=== PATIENT | female | born 1935 | race Caucasian/White ===

== ENCOUNTER → 2017-12-17 09:02 | Outpatient (CLI) | payer MEDICARE, OTHER, SELFPAY ==
--- NOTE | 2017-12-17 | DI.MRI.S_ITS ---
PROCEDURE: MR LUMBAR SPINE WO CON INDICATIONS: BILATERAL LUMBAR RADICULOPATHY TECHNIQUE: Noncontrast sagittal T1 spin echo and T2 fast echo, sagittal STIR, axial T1 and T2 fast spin echo through the lumbar spine. In cases with scoliosis, additional coronal T2 fast spin echo may be performed. COMPARISON: None. FINDINGS: Image quality: Excellent. Alignment and Curvature: Mild retrolisthesis is seen at the L1-L2 and L2-L3 levels. S-shaped scoliotic curvature is seen. Bone Marrow: Marrow is of normal overall signal. No acute vertebral body compression fractures. Scattered foci are seen, which are hyperintense on T1-weighted and T2-weighted imaging, which are most consistent with benign vertebral body hemangiomas. Spinal Cord: Conus medullaris terminates at the L1 level. Visualized cord demonstrates normal signal and size. Paraspinous Soft Tissues: No paravertebral masses. Postoperative changes are seen, with bilateral pedicle screws at the L3, L4, and L5 levels. Vertical fixation rods are seen. There is associated susceptibility artifact. There has been removal of portions of the posterior elements. T12-L1: Normal appearance. L1-L2: At least moderate loss of disc height is seen. Moderate generalized disc bulge is seen. Bridging endplate osteophytes are seen anteriorly. Mild bilateral neural foraminal narrowing is seen. Moderate central canal narrowing is seen. L2-L3: Moderate to severe loss of disc height and disc signal are seen. Mitral and disc bulge is seen, which is eccentric to the left. There is moderate to severe left-sided neural foraminal narrowing seen, with a degree of impingement upon the exiting left L2 nerve root. Moderate right-sided neural foraminal narrowing is seen. Moderate central canal narrowing is seen. L3-L4: Mild to moderate loss of disc height and disc signal are seen. Mild to moderate disc bulge is seen. Moderate bilateral neural foraminal narrowing is seen at this level. The central canal is widely patent. L4-L5: The disc height is well-preserved. Loss of disc signal is seen at this level. Mild generalized disc bulge is seen. Mild bilateral neural foraminal narrowing is seen. The central canal is widely patent. L5-S1: The disc height is well-preserved. Loss of disc signal is seen at this level. Mild disc bulge is seen, with a central disc extrusion, with superior migration of disc material, as on series 4 image 10. Moderate to severe bilateral neural foraminal narrowing is seen. There is a degree of impingement seen upon the exiting nerve roots. The central canal is widely patent. IMPRESSION: Moderate to severe bilateral neural foraminal narrowing is seen at L5-S1. L3-L5 hardware and removal of portions of the posterior elements. Grade 1 retrolisthesis at L1-L2 and L2-L3. Dictated by: Davey Mosquera M.D. on 12/17/2017 at 9:01 Approved by: Davey Mosquera M.D. on 12/17/2017 at 9:07
== END ==
PROVIDERS: Family Provider Family Medicine; Visit Provider Family Medicine
DX: M43.16 Spondylolisthesis, lumbar region (principal); M99.73 Connective tissue and disc stenosis of intervertebral foramina of lumbar region
CPT/HCPCS: 72148

== ENCOUNTER 2020-11-13 13:31 | Emergency (ER) | payer MEDICARE, OTHER, SELFPAY ==
[2020-11-13] VITALS (10 sets, daily range): BP systolic 151–175; BP diastolic 65–104; PULSE 55–70; RESP 16; TEMP 36.6; O2SAT 95–98
--- NOTE | 2020-11-13 14:02 | DI.RAD.S_ITS ---
PROCEDURE: XR SHOULDER RT MIN 2V INDICATIONS: pain sp glf TECHNIQUE: 3 views of the shoulder were acquired. COMPARISON: None. FINDINGS: Bones: No acute fractures or dislocations. No suspicious bony lesions. Visualized ribs appear intact. Mild to moderate degenerative changes at the acromioclavicular joint. Soft tissues: No suspicious soft tissue calcifications. IMPRESSION: No acute osseous abnormality. If clinical suspicion and/or symptoms persist, additional imaging with repeat plain films, or advanced imaging (e.g. CT, MRI) may be helpful for further assessment. Dictated by: Harjinder Merchant M.D. on 11/13/2020 at 14:47 Approved by: Harjinder Merchant M.D. on 11/13/2020 at 14:48
--- NOTE | 2020-11-13 14:02 | DI.CT.S_ITS ---
PROCEDURE: CT HEAD/BRAIN WO CON INDICATIONS: mult unwitnessed falls TECHNIQUE: Noncontrast 4.5 mm thick angled axial sections acquired from the foramen magnum to the vertex, with coronal and sagittal reformats. For radiation dose reduction, the following was used: automated exposure control, adjustment of mA and/or kV according to patient size. COMPARISON: None. FINDINGS: Image quality: Excellent. CSF spaces: Basal cisterns are patent. No extra-axial fluid collections. Ventricles are normal in size and shape. Brain: Advanced global cerebral volume loss and chronic microvascular ischemic changes. No midline shift. No intracranial masses or hemorrhage. Peters-white matter interface is normal. Skull and face: Calvarium and visualized facial bones are intact, without suspicious lesions. Sinuses: Visualized sinuses and mastoids are clear. IMPRESSION: No acute intracranial abnormality. Global cerebral volume loss and chronic microvascular ischemic changes, both advanced for age. Dictated by: Natan Yoder M.D. on 11/13/2020 at 14:20 Approved by: Natan Yoder M.D. on 11/13/2020 at 14:21
--- NOTE | 2020-11-13 14:02 | DI.RAD.S_ITS ---
PROCEDURE: XR WRIST RT MIN 3V INDICATIONS: pain sp glf TECHNIQUE: 4 views of the wrist were acquired. COMPARISON: None. FINDINGS: Bones: No acute fractures or dislocations. No suspicious bony lesions. Severe degenerative changes are seen at the 1st carpometacarpal joint. Small ossifications adjacent to the joint are most likely loose bodies. Scaphoid view: Intact scaphoid. Soft tissues: Mild calcification of the triangle fibrocartilage is compatible with mild chondrocalcinosis. IMPRESSION: 1. No acute osseous abnormality. If clinical suspicion and/or symptoms persist, additional imaging with repeat plain films, or advanced imaging (e.g. CT, MRI) may be helpful for further assessment. 2. Severe 1st carpometacarpal osteoarthrosis. 3. Chondrocalcinosis. Dictated by: Harjinder Merchant M.D. on 11/13/2020 at 14:51 Approved by: Harjinder Merchant M.D. on 11/13/2020 at 14:52
--- NOTE | 2020-11-13 14:02 | DI.RAD.S_ITS ---
PROCEDURE: XR ELBOW RT MIN 3V INDICATIONS: pain sp glf TECHNIQUE: Three views of the elbow were acquired. COMPARISON: None. FINDINGS: Bones: No acute fractures or dislocations. No suspicious bony lesions. Degenerative changes are seen at the medial aspect of the elbow with joint space narrowing, subchondral sclerosis, and marginal osteophyte formation. Soft tissues: No significant joint effusion is seen, although positioning on the lateral view is mildly suboptimal. No suspicious soft tissue calcifications. IMPRESSION: No acute osseous abnormality. If clinical suspicion and/or symptoms persist, additional imaging with repeat plain films, or advanced imaging (e.g. CT, MRI) may be helpful for further assessment. Dictated by: Harjinder Merchant M.D. on 11/13/2020 at 14:48 Approved by: Harjinder Merchant M.D. on 11/13/2020 at 14:51
[2020-11-13 14:11] LABS: Add Manual Diff / Slide Review NO; Basophils Absolute Auto 100 /uL (0-100); Basophils Percent Auto 1.4 % (0-2); Eosinophils Absolute Auto 100 /uL (0-450); Eosinophils Percent Auto 1.6 % (2-4); Hematocrit 25.6 % (36-46); Hemoglobin 8.1 g/dL (12.0-16.0); Lymphocytes Absolute Auto 1800 /uL (1100-4500); Lymphocytes Percent Auto 29.8 % (25-40); Mean Corpuscular HGB Conc 31.4 % (30-36); Mean Corpuscular Hemoglobin 27.5 PG (26-34); Mean Corpuscular Volume 87.4 fL (80-100); Monocytes Absolute Auto 500 /uL (0-900); Monocytes Percent Auto 7.7 % (3-14); Neutrophils Absolute Auto 3600 /uL (1500-7000); Neutrophils Percent Auto 59.5 % (50-75); Platelet Count 512 X10^3/uL (150-400); Red Blood Cell Count 2.93 X10^6/uL (4.0-5.2); Red Cell Distribution Width 15.3 % (11.6-14.8); White Blood Cell Count 6.1 X10^3/uL (4.5-11.0)
[2020-11-13 14:33] LABS: Alanine Aminotransferase 11 IU/L (<35); Albumin 4.1 g/dL (3.5-5.0); Albumin Globulin Ratio 1.4 (1.0-2.8); Alkaline Phosphatase 67 U/L (38-126); Aspartate Aminotransferase 25 IU/L (14-36); BUN Creatinine Ratio 20.2 (6-22); Bilirubin Total 0.3 mg/dL (0.2-1.3); Blood Urea Nitrogen 19 mg/dL (7-17); Carbon Dioxide 24 mmol/L (22-32); Chloride 107 mmol/L (98-107); Estimated Glomerular Filt Rate 56.6 mL/min (>60); Globulin 2.9 g/dL (1.7-4.1); Glucose 103 mg/dL (80-110); HEMOLYSIS < 15 (0-50); Magnesium 2.2 mg/dL (1.6-2.3); Potassium 4.3 mmol/L (3.4-5.1); Sodium 136 mmol/L (137-145)
[2020-11-13 15:52] LABS: Appearance Urine UA SL CLOUDY; Bilirubin Urine UA NEGATIVE (NEGATIVE); Color Urine UA YELLOW; Glucose Urine UA NEGATIVE (Negative); Ketones Urine UA NEGATIVE (NEGATIVE); Leukocyte Esterase Urine UA 1+ (NEGATIVE); Nitrite Urine UA NEGATIVE (Negative); Occult Blood Urine UA NEGATIVE (Negative); Protein Urine UA NEGATIVE (Negative); RBC Urine None Seen (0-5/HPF); Specific Gravity Urine UA 1.025 (1.000-1.035); Urobilinogen Urine UA 0.2 E.U./dL (0.2)
[2020-11-13 15:54] LABS: WBC Urine 1-5/HPF (0-5/HPF)
[2020-11-13 15:55] LABS: Bacteria Urine Many (>30); Culture Indicated Urine Specimen Cultured
[2020-11-13] MEDS: LIDOCAINE PATCH 1 EACH ADH..PATCH TOP (16:32)
[2020-11-13] MEDS: ACETAMINOPHEN 325 MG TABLET 650 MG PO (16:32)
--- NOTE | 2020-11-13 17:11 | CM.SWNOTE ---
CHIP CRUSHER OPERATOR Note CHIP CRUSHER OPERATOR receives consult and meets with patient and patient's . Patient is 85 y/o female presents to this ED with concern for pain in right arm. Patient presents as sleeping and non-responsive to being woken up. Patient's reports that patient sleeps during the day and has trouble sleeping during the evening. It is reported that patient will move to [facility] next week. Patient's reports he is recovering from having an extensive surgery in June 2020 and is patient's current caregiver. Patient's reports he will assess how [facility] is working for patient over the next few months and decide if it is to be ongoing. Patient's reports ongoing concern for patient's memory and reports 3 GLFs over that last few months. CHIP CRUSHER OPERATOR provides patient's with senior resource guide. Plan: patient to d/c home when medically clear with and to seek higher level of care at [facility] next week. RANDA Farrell
[2020-11-13] MEDS: cephALEXin 250 MG CAPSULE 500 MG PO (17:28)
--- NOTE | 2020-11-13 18:41 | ED.UPPEXIN ---
HPI - Extremity Injury (Upper) <BEATRICE Robledo - Last Filed: 11/13/20 18:48> General Chief Complaint: Extremity Injury, Upper Stated Complaint: lot of trouble+pain in right arm Time Seen by Provider: 11/13/20 13:43 Source: family Mode of arrival: Wheelchair Limitations: altered mental status History of Present Illness HPI narrative: The patient is an 85-year-old female nonsmoker with history of dementia who presents with her for chief complaint of right arm pain. She has a history of severe dementia and is actually going to be admitted to [facility] later this week or next week. Her states that overall she has fallen about 3 times in the past 4 months. He states that she gets tired and sits down. He is her 30/12 caregiver. Upon interview, she complains of right arm pain but no other complaints. He denies any recent falls. He does not think she has hit her head ever. She does not take any blood thinners. [address] on [facility]. He gave her oxycodone for pain yesterday. Related Data Home Medications Medication Instructions Recorded Confirmed ascorbic acid (vitamin C) 500 mg mg PO DAILY cap 11/01/20 11/03/20 capsule calcium carb-vit D2-minerals PO 11/01/20 11/03/20 cholecalciferol (vitamin D3) 25 25 mcg PO DAILY 11/01/20 11/03/20 mcg (1,000 unit) tablet coenzyme Q10 PO 11/01/20 11/03/20 cyanocobalamin (vitamin B-12) PO 11/01/20 11/03/20 donepezil 10 mg tablet 10 mg PO BEDTIME 11/01/20 11/03/20 multivitamin with minerals PO 11/01/20 11/03/20 omega-3 fatty acids PO 11/01/20 11/03/20 Previous Rx's Medication Instructions Recorded baclofen 10 mg tablet 10 mg PO BEDTIME PRN #30 tab 11/03/20 cephalexin 500 mg PO BID #10 cap 11/13/20 lidocaine 1 patch TOPICAL DAILY PRN #15 ea 11/13/20 Allergies Allergy/AdvReac Type Severity Reaction Status Date / Time tramadol Allergy Unknown Verified 11/13/20 13:44 Review of Systems <BEATRICE Robledo - Last Filed: 11/13/20 18:48> Review of Systems Narrative: GENERAL: Denies chills, fatigue, malaise, fever, sweats. HEENT: Denies sinus pain, ear pain, sore throat, difficulty swallowing, dizziness. RESPIRATORY: Denies dyspnea, cough, wheezing, hemoptysis, sputum. CARDIOVASCULAR: Denies chest pain, palpitations, orthopnea, edema, GASTROINTESTINAL: Denies nausea, vomiting, abdominal pain, diarrhea, constipation, melena. : Denies dysuria, frequency, incontinence, hematuria, urinary retention. MUSCULOSKELETAL: See HPI SKIN: Denies rash, skin lesions, or other NEUROLOGIC: Denies weakness, headache, numbness, change in speech, confusion, seizures, incoordination. PSYCHIATRIC: No concerning psychosocial issues. 12 point review of systems is negative except for those stated above Patient History <MARLEY Robledo - Last Filed: 11/13/20 18:48> Medical History (Reviewed 11/13/20 @ 18:43 by Jaye Rich [facility] Dizziness and giddiness Episodic memory loss GERD (gastroesophageal reflux disease) Insomnia, unspecified Social History Smoking Status: Never smoker Smoking Status: Never smoker alcohol intake frequency: holidays/special occasions only Substance Use Type: does not use Exam <MARLEY Robledo - Last Filed: 11/13/20 18:48> Narrative Exam Narrative: GENERAL: This is a well-nourished, well-developed patient, in no acute distress HEAD: Atraumatic. Normocephalic. No temporal or scalp tenderness. EYES: Pupils equal round and reactive. Extraocular motions intact. No scleral icterus. No injection or drainage. ENT: Nose without bleeding, purulent drainage or septal hematoma. Wearing a mask. Airway patent. NECK: Trachea midline. No JVD or lymphadenopathy. Supple, nontender, no meningeal signs. CARDIOVASCULAR: Regular rate and rhythm RESPIRATORY: Clear to auscultation. Breath sounds equal bilaterally. No wheezes, rales, or rhonchi. No cough. No increased respiratory effort. No accessory muscle use. GASTROINTESTINAL: Abdomen soft, non-tender, nondistended. No hepato-splenomegaly, or palpable masses. No guarding. EXTREMITIES: Right arm is diffusely tender to palpation, decreased range of motion all dumont for shoulder. Good public relations player strength right hand. Positive right radial pulse. BACK: Nontender without deformity or crepitance. No flank tenderness. NEURO: Alert, interactive, oriented to name. At baseline per . Difficulty following commands. SKIN: No rash or erythema. Initial Vital Signs Initial Vital Signs: Vital Signs Pulse Rate 70 11/13/20 13:39 Pulse Oximetry 96 11/13/20 13:39 <Deanna Fuentes DO - Last Filed: 11/17/20 07:39> Initial Vital Signs Initial Vital Signs: Vital Signs Pulse Rate 70 11/13/20 13:39 Pulse Oximetry 96 11/13/20 13:39 Scores <BEATRICE Robledo - Last Filed: 11/13/20 18:48> GCS Prasanth coma scale eye opening: Spontaneous [place] coma scale verbal response: Orientated [place] coma scale motor response: Obey commands [place] coma scale total score: 15 Course <BEATRICE Robledo - Last Filed: 11/13/20 18:48> Orders Ordered: Discontinued Medications Acetaminophen (Acetaminophen 325 Mg Tablet) 650 mg PO NOW ONE Stop: 11/13/20 16:15 Last Admin: 11/13/20 16:32 Dose: 650 mg Documented by: [email or web address] Cephalexin HCl (Cephalexin 250 Mg Capsule) 500 mg PO NOW ONE Stop: 11/13/20 17:24 Last Admin: 11/13/20 17:28 Dose: 500 mg Documented by: [email or web address] Lidocaine (Lidocaine Patch 1 Each Adh..Patch) 1 each TOP NOW ONE Stop: 11/13/20 16:15 Last Admin: 11/13/20 16:32 Dose: 1 each Documented by: [email or web address] Lidocaine (Remove Lidocaine Patch) 1 each TOP DAILY@0500 [facility] Vital Signs Vital signs: Vital Signs - 8 hr 11/13/20 13:39 11/13/20 13:40 11/13/20 13:44 Temperature 98 F Pulse Rate 70 63 63 Respiratory Rate 16 Blood Pressure 151/65 H 151/65 H Pulse Oximetry 96 96 98 11/13/20 14:00 11/13/20 14:27 11/13/20 14:30 Temperature Pulse Rate 61 58 L 57 L Respiratory Rate Blood Pressure 162/70 H 167/73 H Pulse Oximetry 95 97 96 11/13/20 15:00 11/13/20 16:00 11/13/20 16:30 Temperature Pulse Rate 56 L 55 L 59 L Respiratory Rate Blood Pressure 175/72 H Pulse Oximetry 98 98 97 11/13/20 16:39 Temperature Pulse Rate 69 Respiratory Rate Blood Pressure 164/104 H Pulse Oximetry 98 <Deanna Fuentes DO - Last Filed: 11/17/20 07:39> Orders Ordered: Discontinued Medications Acetaminophen (Acetaminophen 325 Mg Tablet) 650 mg PO NOW ONE Stop: 11/13/20 16:15 Last Admin: 11/13/20 16:32 Dose: 650 mg Documented by: [email or web address] Cephalexin HCl (Cephalexin 250 Mg Capsule) 500 mg PO NOW ONE Stop: 11/13/20 17:24 Last Admin: 11/13/20 17:28 Dose: 500 mg Documented by: [email or web address] Lidocaine (Lidocaine Patch 1 Each Adh..Patch) 1 each TOP NOW ONE Stop: 11/13/20 16:15 Last Admin: 11/13/20 16:32 Dose: 1 each Documented by: [email or web address] Lidocaine (Remove Lidocaine Patch) 1 each TOP DAILY@0500 [facility] Vital Signs Vital signs: Vital Signs - 8 hr 11/13/20 13:39 11/13/20 13:40 11/13/20 13:44 Temperature 98 F Pulse Rate 70 63 63 Respiratory Rate 16 Blood Pressure 151/65 H 151/65 H Pulse Oximetry 96 96 98 11/13/20 14:00 11/13/20 14:27 11/13/20 14:30 Temperature Pulse Rate 61 58 L 57 L Respiratory Rate Blood Pressure 162/70 H 167/73 H Pulse Oximetry 95 97 96 11/13/20 15:00 11/13/20 16:00 11/13/20 16:30 Temperature Pulse Rate 56 L 55 L 59 L Respiratory Rate Blood Pressure 175/72 H Pulse Oximetry 98 98 97 11/13/20 16:39 Temperature Pulse Rate 69 Respiratory Rate Blood Pressure 164/104 H Pulse Oximetry 98 MDM - Extremity Injury (Upper) <OPHELIA Robledo-BC - Last Filed: 11/13/20 18:48> Lab Data Attestation: I reviewed the patient's lab results. Result diagrams: 11/13/20 14:03 11/13/20 14:03 Labs: Lab Results 11/13/20 11/13/20 11/13/20 Range/Units 14:03 14:03 15:25 WBC 6.1 (4.5-11.0) X10^3/uL RBC 2.93 L (4.0-5.2) X10^6/uL Hgb 8.1 L (12.0-16.0) g/dL Hct 25.6 L (36-46) % MCV 87.4 (80-100) fL MCH 27.5 (26-34) PG MCHC 31.4 (30-36) % RDW 15.3 H (11.6-14.8) % Plt Count 512 H (150-400) X10^3/uL Neut % (Auto) 59.5 (50-75) % Lymph % (Auto) 29.8 (25-40) % Dewey % (Auto) 7.7 (3-14) % Eos % (Auto) 1.6 L (2-4) % Baso % (Auto) 1.4 (0-2) % Neut # (Auto) 3600 (4363-2982) /uL Lymph # (Auto) 1800 (7189-1543) /uL Dewey # (Auto) 500 (0-900) /uL Eos # (Auto) 100 (0-450) /uL Baso # (Auto) 100 (0-100) /uL Sodium 136 L (137-145) mmol/L Potassium 4.3 (3.4-5.1) mmol/L Chloride 107 (98-107) mmol/L Carbon Dioxide 24 (22-32) mmol/L BUN 19 H (7-17) mg/dL Creatinine 0.94 (0.52-1.04) mg/dL Estimated GFR 56.6 L (>60) mL/min BUN/Creatinine Ratio 20.2 (6-22) Glucose 103 (80-110) mg/dL Calcium 10.0 (8.4-10.2) mg/dL Magnesium 2.2 (1.6-2.3) mg/dL Total Bilirubin 0.3 (0.2-1.3) mg/dL AST 25 (14-36) IU/L ALT 11 (<35) IU/L Alkaline Phosphatase 67 (38-126) U/L Total Protein 7.0 (6.3-8.2) g/dL Albumin 4.1 (3.5-5.0) g/dL Globulin 2.9 (1.7-4.1) g/dL Albumin/Globulin Ratio 1.4 (1.0-2.8) Urine Color Yellow Urine Appearance Sl cloudy Urine pH 6.0 (4.5-8.0) Ur Specific [place] 1.025 (1.000-1.035) Urine Protein Negative (Negative) Urine Glucose (UA) Negative (Negative) g/dL Urine Ketones Negative (NEGATIVE) Urine Occult Blood Negative (Negative) Urine Nitrate Negative (Negative) Urine Bilirubin Negative (NEGATIVE) Urine Urobilinogen 0.2 (0.2) E.U./dL Ur Leukocyte Esterase 1+ H (NEGATIVE) Urine RBC None seen (0-5/HPF) Urine WBC 1-5/hpf (0-5/HPF) Urine Bacteria Many (>30) H (None) Ur Culture Indicated? Specimen cultured Imaging Data Extremity x-ray #1: Radiologist's Impression: [address] [place] [id number] ReportSigned Patient: Micki Puente WMR#: [id number]: 5Acct:[id number]/Sex: 85 / FDate of Service: 11/13/20Loc: EDAccession Number: [id number] Procedure: XR wrist RT min 3V Ordering Provider: Jaye Rich CHAINSTITCH HEMMER- PROCEDURE: XR WRIST RT MIN 3V INDICATIONS: pain sp glf TECHNIQUE: 4 views of the wrist were acquired. COMPARISON: None. FINDINGS: Bones: No acute fractures or dislocations. No suspicious bony lesions. Severe degenerative changes are seen at the 1st carpometacarpal joint. Small ossifications adjacent to the joint are most likely loose bodies. Scaphoid view: Intact scaphoid. Soft tissues: Mild calcification of the triangle fibrocartilage is compatible with mild chondrocalcinosis. IMPRESSION: 1. No acute osseous abnormality. If clinical suspicion and/or symptoms persist, additional imaging with repeat plain films, or advanced imaging (e.g. CT, MRI) may be helpful for further assessment. 2. Severe 1st carpometacarpal osteoarthrosis. 3. Chondrocalcinosis. Dictated by: Harjinder Merchant M.D. on 11/13/2020 at 14:51 Approved by: Harjinder Merchant M.D. on 11/13/2020 at 14:52 Extremity x-ray #2: Radiologist's Impression: [address] [place] [id number] ReportSigned Patient: Micki Puente WMR#: [id number]: 5Acct:[id number]/Sex: 85 / FDate of Service: 11/13/20Loc: EDAccession Number: [id number] Procedure: XR shoulder RT min 2V Ordering Provider: Jaye Rich PROCEDURE: XR SHOULDER RT MIN 2V INDICATIONS: pain sp glf TECHNIQUE: 3 views of the shoulder were acquired. COMPARISON: None. FINDINGS: Bones: No acute fractures or dislocations. No suspicious bony lesions. Visualized ribs appear intact. Mild to moderate degenerative changes at the acromioclavicular joint. Soft tissues: No suspicious soft tissue calcifications. IMPRESSION: No acute osseous abnormality. If clinical suspicion and/or symptoms persist, additional imaging with repeat plain films, or advanced imaging (e.g. CT, MRI) may be helpful for further assessment. Dictated by: Harjinder Merchant M.D. on 11/13/2020 at 14:47 Approved by: Harjinder Merchant M.D. on 11/13/2020 at 14:48 Extremity x-ray #3: Radiologist's Impression: [address] [place] [id number] ReportSigned Patient: Micki Puente WMR#: [id number]: 5Acct:[id number]/Sex: 85 / FDate of Service: 11/13/20Loc: EDAccession Number: [id number] Procedure: XR elbow RT min 3V Ordering Provider: Jaye Rich PROCEDURE: XR ELBOW RT MIN 3V INDICATIONS: pain sp glf TECHNIQUE: Three views of the elbow were acquired. COMPARISON: None. FINDINGS: Bones: No acute fractures or dislocations. No suspicious bony lesions. Degenerative changes are seen at the medial aspect of the elbow with joint space narrowing, subchondral sclerosis, and marginal osteophyte formation. Soft tissues: No significant joint effusion is seen, although positioning on the lateral view is mildly suboptimal. No suspicious soft tissue calcifications. IMPRESSION: No acute osseous abnormality. If clinical suspicion and/or symptoms persist, additional imaging with repeat plain films, or advanced imaging (e.g. CT, MRI) may be helpful for further assessment. Dictated by: Harjinder Merchant M.D. on 11/13/2020 at 14:48 Approved by: Harjinder Merchant M.D. on 11/13/2020 at 14:51 CT scan - head: Radiologist's Impression: [address] [place] [address] [id number] Scan ReportSigned Patient: Micki Puente WMR#: [id number]: 5Acct:[id number]/Sex: 85 / FDate of Service: 11/13/20Loc: EDAccession Number: [id number] Procedure: CT head/brain wo con Ordering Provider: Jaye Rich- PROCEDURE: CT HEAD/BRAIN WO CON INDICATIONS: mult unwitnessed falls TECHNIQUE: Noncontrast 4.5 mm thick angled axial sections acquired from the foramen magnum to the vertex, with coronal and sagittal reformats. For radiation dose reduction, the following was used: automated exposure control, adjustment of mA and/or kV according to patient size. COMPARISON: None. FINDINGS: Image quality: Excellent. CSF spaces: Basal cisterns are patent. No extra-axial fluid collections. Ventricles are normal in size and shape. Brain: Advanced global cerebral volume loss and chronic microvascular ischemic changes. No midline shift. No intracranial masses or hemorrhage. Peters-white matter interface is normal. Skull and face: Calvarium and visualized facial bones are intact, without suspicious lesions. Sinuses: Visualized sinuses and mastoids are clear. IMPRESSION: No acute intracranial abnormality. Global cerebral volume loss and chronic microvascular ischemic changes, both advanced for age. Dictated by: Natan Yoder M.D. on 11/13/2020 at 14:20 Approved by: Natan Yoder M.D. on 11/13/2020 at 14:21 [facility] Narrative Medical decision making narrative: The patient is an 85-year-old female who presents with a chief complaint of diffuse right arm pain. Given her falls over the past few months, head CT obtained. Basic lab work was drawn. Patient was noted to be anemic with hemoglobin of 8. However we are unable to obtain previous labs for history. We attempted several times to obtain her old primary care provider clinic. Discussed with Dr Fuentes and encouraged primary care provider re-evaluation recheck in the next few days. She has no black tarry stools per her . Urine is concerning for infection, placed on Keflex with culture pending. Patient ambulated with steady gait and was strong on her feet per nurse. She was given acetaminophen and lidocaine patch as well as prescription of lidocaine patch for pain. Discussed at length coming back to the ER for acute concerns with her . The patient has been hemodynamically stable throughout her stay in the ER. Encouraged primary care provider follow-up in the next few days. Patient's has no questions or concerns upon discharge states understanding of return precautions as well as follow-up care. <Deanna Fuentes, DO - Last Filed: 11/17/20 07:39> Lab Data Labs: Lab Results 11/13/20 11/13/20 11/13/20 Range/Units 14:03 14:03 15:25 WBC 6.1 (4.5-11.0) X10^3/uL RBC 2.93 L (4.0-5.2) X10^6/uL Hgb 8.1 L (12.0-16.0) g/dL Hct 25.6 L (36-46) % MCV 87.4 (80-100) fL MCH 27.5 (26-34) PG MCHC 31.4 (30-36) % RDW 15.3 H (11.6-14.8) % Plt Count 512 H (150-400) X10^3/uL Neut % (Auto) 59.5 (50-75) % Lymph % (Auto) 29.8 (25-40) % Dewey % (Auto) 7.7 (3-14) % Eos % (Auto) 1.6 L (2-4) % Baso % (Auto) 1.4 (0-2) % Neut # (Auto) 3600 (8518-9445) /uL Lymph # (Auto) 1800 (9453-5597) /uL Dewey # (Auto) 500 (0-900) /uL Eos # (Auto) 100 (0-450) /uL Baso # (Auto) 100 (0-100) /uL Sodium 136 L (137-145) mmol/L Potassium 4.3 (3.4-5.1) mmol/L Chloride 107 (98-107) mmol/L Carbon Dioxide 24 (22-32) mmol/L BUN 19 H (7-17) mg/dL Creatinine 0.94 (0.52-1.04) mg/dL Estimated GFR 56.6 L (>60) mL/min BUN/Creatinine Ratio 20.2 (6-22) Glucose 103 (80-110) mg/dL Calcium 10.0 (8.4-10.2) mg/dL Magnesium 2.2 (1.6-2.3) mg/dL Total Bilirubin 0.3 (0.2-1.3) mg/dL AST 25 (14-36) IU/L ALT 11 (<35) IU/L Alkaline Phosphatase 67 (38-126) U/L Total Protein 7.0 (6.3-8.2) g/dL Albumin 4.1 (3.5-5.0) g/dL Globulin 2.9 (1.7-4.1) g/dL Albumin/Globulin Ratio 1.4 (1.0-2.8) Urine Color Yellow Urine Appearance Sl cloudy Urine pH 6.0 (4.5-8.0) Ur Specific [place] 1.025 (1.000-1.035) Urine Protein Negative (Negative) Urine Glucose (UA) Negative (Negative) g/dL Urine Ketones Negative (NEGATIVE) Urine Occult Blood Negative (Negative) Urine Nitrate Negative (Negative) Urine Bilirubin Negative (NEGATIVE) Urine Urobilinogen 0.2 (0.2) E.U./dL Ur Leukocyte Esterase 1+ H (NEGATIVE) Urine RBC None seen (0-5/HPF) Urine WBC 1-5/hpf (0-5/HPF) Urine Bacteria Many (>30) H (None) Ur Culture Indicated? Specimen cultured Discharge Plan Departure Patient Disposition: Home Clinical Impression: Arm pain Qualifiers: Laterality: right Qualified Code(s): M79.601 - Pain in right arm UTI (urinary tract infection) Qualifiers: Urinary tract infection type: site unspecified Hematuria presence: without hematuria Qualified Code(s): N39.0 - Urinary tract infection, site not specified Anemia Qualifiers: Anemia type: unspecified type Qualified Code(s): D64.9 - Anemia, unspecified Instructions: Anemia, How To Perform RICE (Rest, Ice, Compress, Elevate), DI for Arm Pain, Lidocaine Transdermal Patch Activity Restrictions/Additional Instructions: Thank you for trusting us with your care today. As discussed, the x-ray had no acute findings. Your head CT has no acute findings. I sent a prescription of lidocaine patches to [facility]. Your blood work shows evidence of anemia. Please follow-up with primary care provider regarding this. I suggest rechecking this lab in a few days. Your urine showed signs of a possible urinary tract infection. I sent a prescription of antibiotics to [facility] Please come back to the emergency department for any acute concerns. Prescriptions: New lidocaine 5 % adhesive patch,medicated 1 patch topical DAILY PRN (Reason: pain ) Qty: 15 RF: 0 cephalexin 500 mg capsule 500 mg PO BID Qty: 10 RF: 0 No Action baclofen 10 mg tablet 10 mg PO BEDTIME PRN (Reason: back pain) Qty: 30 RF: 0 omega-3 fatty acids PO RF: 0 multivitamin with minerals PO RF: 0 donepezil 10 mg tablet 10 mg PO BEDTIME RF: 0 calcium carb-vit D2-minerals PO RF: 0 ascorbic acid (vitamin C) 500 mg capsule PO DAILY RF: 0 cholecalciferol (vitamin D3) 25 mcg (1,000 unit) tablet 25 mcg PO DAILY RF: 0 cyanocobalamin (vitamin B-12) PO RF: 0 coenzyme Q10 PO RF: 0 Referrals: Brian Gonzalez MD [Primary Care Provider] - <Deanna Fuentes DO - Last Filed: 11/17/20 07:39> [facility] ED Attending Fouziaature Attestation: I was immediately available in the department for consultation. Documentation has been reviewed. I agree with assessment and plan.
== END 2020-11-13 18:01 | disposition home or self-care (01) ==
PROVIDERS: Emergency Provider Nurse Practitioner Family; Family Provider Family Medicine; PCP Family Medicine
DX: M79.601 Pain in right arm (principal); M25.531 Pain in right wrist; M25.511 Pain in right shoulder; N39.0 Urinary tract infection, site not specified; D64.9 Anemia, unspecified; S09.90XA Unspecified injury of head, initial encounter; W19.XXXA Unspecified fall, initial encounter; R29.6 Repeated falls; F03.90 Unspecified dementia, unspecified severity, without behavioral disturbance, psychotic disturbance, mood disturbance, and anxiety
CPT/HCPCS: 36415; 70450; 73030; 73080; 73110; 80053; 81001; 83735; 85025; 87077; 87086; 87186; 99284

== ENCOUNTER → 2021-01-03 14:01 | Outpatient (CLI) | payer MEDICARE, OTHER, SELFPAY ==
[2021-01-03 15:23] LABS: Add Manual Diff / Slide Review NO; Basophils Absolute Auto 100 /uL (0-100); Basophils Percent Auto 1.2 % (0-2); Eosinophils Absolute Auto 100 /uL (0-450); Eosinophils Percent Auto 1.6 % (2-4); Hematocrit 35.4 % (36-46); Hemoglobin 10.6 g/dL (12.0-16.0); Lymphocytes Absolute Auto 2700 /uL (1100-4500); Mean Corpuscular HGB Conc 29.8 % (30-36); Mean Corpuscular Hemoglobin 24.5 PG (26-34); Mean Corpuscular Volume 82.1 fL (80-100); Monocytes Absolute Auto 600 /uL (0-900); Monocytes Percent Auto 6.8 % (3-14); Neutrophils Absolute Auto 5100 /uL (1500-7000); Neutrophils Percent Auto 59.4 % (50-75); Platelet Count 464 X10^3/uL (150-400); Red Blood Cell Count 4.31 X10^6/uL (4.0-5.2); Red Cell Distribution Width 18.6 % (11.6-14.8); White Blood Cell Count 8.6 X10^3/uL (4.5-11.0)
[2021-01-03 16:05] LABS: Alanine Aminotransferase 17 IU/L (<35); Albumin 4.1 g/dL (3.5-5.0); Albumin Globulin Ratio 1.3 (1.0-2.8); Alkaline Phosphatase 75 U/L (38-126); Aspartate Aminotransferase 25 IU/L (14-36); Bilirubin Total 0.2 mg/dL (0.2-1.3); Blood Urea Nitrogen 20 mg/dL (7-17); Calcium 10.2 mg/dL (8.4-10.2); Carbon Dioxide 23 mmol/L (22-32); Chloride 105 mmol/L (98-107); Estimated Glomerular Filt Rate 49.8 mL/min (>60); Globulin 3.1 g/dL (1.7-4.1); Glucose 134 mg/dL (80-110); HEMOLYSIS < 15 (0-50); Potassium 4.3 mmol/L (3.4-5.1); Sodium 137 mmol/L (137-145); Total Protein 7.2 g/dL (6.3-8.2)
[2021-01-03 16:44] LABS: Thyroid Stimulating Hormone 0.938 uIU/mL (0.47-4.68)
[2021-01-03 16:50] LABS: Vitamin B12 556 pg/mL (239-931)
== END ==
PROVIDERS: Family Provider Family Medicine; PCP Family Medicine; Referring Provider Registered Nurse; Visit Provider Registered Nurse
DX: R40.0 Somnolence (principal); R41.0 Disorientation, unspecified
CPT/HCPCS: 36415; 80053; 82607; 84443; 85025

== ENCOUNTER → 2021-03-23 08:10 | Outpatient (ROUT) | payer MEDICARE, OTHER, SELFPAY ==
[2021-03-23 09:26] LABS: Appearance Urine UA CLOUDY; Bilirubin Urine UA NEGATIVE (NEGATIVE); Color Urine UA YELLOW; Glucose Urine UA NEGATIVE (Negative); Ketones Urine UA NEGATIVE (NEGATIVE); Leukocyte Esterase Urine UA 3+ (NEGATIVE); Nitrite Urine UA POSITIVE (Negative); Occult Blood Urine UA 1+ (Negative); Protein Urine UA 1+ (Negative); Urobilinogen Urine UA 0.2 E.U./dL (0.2)
[2021-03-23 09:54] LABS: Bacteria Urine Many (>30); Culture Indicated Urine Specimen Cultured; RBC Urine 1-5/HPF (0-5/HPF); Squamous Epithelial Cell Urine None Seen (0-5/HPF); WBC Urine >100/HPF (0-5/HPF)
== END ==
PROVIDERS: Visit Provider Internal Medicine
DX: N39.0 Urinary tract infection, site not specified (principal)
CPT/HCPCS: 81001; 87077; 87086; 87186

== ENCOUNTER → 2021-11-19 15:28 | Outpatient (CLI) | payer MEDICARE, OTHER, SELFPAY | PROVIDERS: Family Provider Family Medicine; PCP Family Medicine; Visit Provider Family Medicine | DX: R30.0 Dysuria (principal) | CPT/HCPCS: 87077; 87086; 87186 ==